=== PATIENT | male | born 1960 | race Caucasian/White ===

== ENCOUNTER → 2018-05-15 | Outpatient (CLI) | payer OTHER ==
[~2018-05-15] MED LIST: ASCORBIC ACID500 M3 PO; CENTRUM SILVER1 EAC5 PO; FLOMAX0.4 MG PO; METAMUCIL POWD822 G1 PO; NEURONTIN100 MG PO
== END | disposition home or self-care (01) ==
LOC: CDC 08:10
DX: Z01.810 Encounter for preprocedural cardiovascular examination (principal); K40.90 Unilateral inguinal hernia, without obstruction or gangrene, not specified as recurrent
CPT/HCPCS: 93000

== ENCOUNTER 2018-05-20 07:31 | Day surgery (SDC) | payer OTHER ==
[~2018-05-20] VITALS: Ht 188 cm; Wt 99.8 kg
[2018-05-20 08:14] VITALS: BP 124/72
[2018-05-20] MEDS ORDERED: PERCOCET 5/31 TABLET PO (10:46)
[2018-05-20 12:14] VITALS: BP 134/65
[2018-05-20 13:26] VITALS: BP 118/59
[2018-05-20 14:30] VITALS: BP 128/65
== END 2018-05-20 14:47 | disposition home or self-care (01) ==
LOC: SDC
PROC: 0YU50JZ Supplement Right Inguinal Region with Synthetic Substitute, Open Approach (ICD-10-PCS; principal; 2018-05-20)
DX: K40.90 Unilateral inguinal hernia, without obstruction or gangrene, not specified as recurrent (principal); E66.9 Obesity, unspecified; Z68.28 Body mass index [BMI] 28.0-28.9, adult
CPT/HCPCS: C1781; J0131; J0690; J1100; J1170; J1885; J2250; J2405; J2710; J3010; J7643